=== PATIENT | female | born 1955 | race Two or more races ===

== ENCOUNTER 2024-08-28 05:10 | Day surgery (SDC) | payer OTHER ==
[2024-08-18 12:30] VITALS: BP 129/78
[~2024-08-28] VITALS: Ht 152.4 cm; Wt 57.2 kg
[~2024-08-28 05:10] MED LIST: LIPITOR40 M1 PO
[2024-08-28] MEDS ORDERED: CEFAZOLIN SODIUM 1,000 MG VIAL ONE ×2 (06:43→08:53)
[2024-08-28] MEDS ORDERED: METHYLPREDNISOLONE ACETATE 80 MG/ML VIAL ONE (07:32)
[2024-08-28] MEDS ORDERED: EPINEPHRINE HCL/PF 1 MG/ML AMPUL ONE (07:33)
[2024-08-28] MEDS ORDERED: LIDOCAINE HCL 1%/EPINEPHRINE 20ML VIAL IJ ONE (07:33)
[2024-08-28] MEDS ORDERED: BUPIVACAINE HCL/Mpf 0.5% 10ML VIAL ONE (07:33)
[2024-08-28] MEDS ORDERED: TRAM1TAB98 PO (08:25)
[2024-08-28] MEDS ORDERED: CEFADROXIL500 MG PO (08:25)
[2024-08-28] MEDS ORDERED: MEPERIDINE HCL/PF 25 MG/ML VIAL IM PRN (08:30)
[2024-08-28] MEDS ORDERED: CEFAZOLIN SODIUM 1,000 MG VIAL IV ONE (08:30)
[2024-08-28] MEDS ORDERED: PROMETHAZINE HCL 25 MG/ML AMPUL IM PRN (08:30)
== END 2024-08-28 13:40 | disposition home or self-care (01) ==
LOC: CIR.AMB 05:10
PROVIDERS: ATTEND Orthopaedic Surgery Sports Medicine
DX: M23.221 Derangement of posterior horn of medial meniscus due to old tear or injury, right knee (principal); M23.51 Chronic instability of knee, right knee; M67.51 Plica syndrome, right knee; M22.41 Chondromalacia patellae, right knee; M65.861 Other synovitis and tenosynovitis, right lower leg